=== PATIENT | female | born 1965 | race Caucasian/White ===

== ENCOUNTER → 2017-06-14 | Outpatient (CLI) | payer BC | LOC: BMCIMAGING 12:13 | PROVIDERS: ATTEND Family Medicine | DX: Z12.31 Encounter for screening mammogram for malignant neoplasm of breast (principal); Z80.3 Family history of malignant neoplasm of breast | CPT/HCPCS: G0202 ==

== ENCOUNTER → 2018-09-18 | Outpatient (CLI) | payer BC, OTHER | LOC: BMCIMAGING 08:24 | PROVIDERS: ATTEND Family Medicine | DX: Z12.31 Encounter for screening mammogram for malignant neoplasm of breast (principal); Z80.3 Family history of malignant neoplasm of breast ==

== ENCOUNTER 2018-11-09 14:30 | Inpatient (IN) | payer OTHER ==
--- NOTE | 2018-11-09 14:49 | EDPHY ---
H & P Source: Patient, EMS Exam Limitations: Clinical condition - Medical/Surgical History Hx Asthma: No Hx Chronic Respiratory Disease: No Hx Diabetes: No Hx Cardiac Disease: No Hx Renal Disease: No Hx Cirrhosis: No Hx Alcoholism: No Hx HIV/AIDS: No Other PMH: fibromyalgia, PTSD, depression - Family History Significant Family History: No pertinent family hx - Social History Smoking Status: Never smoked Alcohol Use: Sober Drug Use: None Time Seen by Provider: 11/09/18 14:38 HPI/ROS: CHIEF COMPLAINT: Suicidal ideations HISTORY OF PRESENT ILLNESS: The patient is a 53-year-old female with a history of PTSD and depression and fibromyalgia who comes to the emergency department via EMS for suicidal ideations. EMS reports that she was driving around town but could not find the hospital she then pulled over and called them for help. She tells me that she came here so that we can help kill her. She tells me that this is legal in several states. She does live here in [place] and has a therapist but states she has not seen them for some time. She states she has been compliant with her medications but cannot remember what they are. She denies recent drug or alcohol use. She denies any recent triggers. During a conversation she states she was having a panic attack and set on the floor and began to hyperventilate. Severity: Severe Modifying factors: Able to calm slightly with vocal de-escalation. REVIEW OF SYSTEMS: Constitutional: denies: chills, fever, recent illness, recent injury EENTM: denies: blurred vision, double vision, nose congestion Respiratory: denies: cough, shortness of breath Cardiac: denies: chest pain, irregular heart rate, lightheadedness, palpitations Gastrointestinal/Abdominal: denies: abdominal pain, diarrhea, nausea, vomiting, blood streaked stools Genitourinary: denies: dysuria, frequency, hematuria, pain Musculoskeletal: denies: joint pain, muscle pain Skin: denies: lesions, rash, jaundice, bruising Neurological: denies: headache, numbness, paresthesia, tingling, dizziness, weakness Hematologic/Lymphatic: denies: blood clots, easy bleeding, easy bruising Immunologic/allergic: denies: HIV/AIDS, transplant 10 systems reviewed and negative except as noted EXAM: GENERAL: Asked if we can help to kill her. HEAD: Atraumatic, normocephalic. EYES: Pupils equal round and reactive to light, extraocular movements intact, sclera anicteric, conjunctiva are normal. ENT: TMs normal, nares patent, oropharynx clear without exudates. Moist mucous membranes. NECK: Normal range of motion, supple without lymphadenopathy or JVD. LUNGS: Breath sounds clear to auscultation bilaterally and equal. No wheezes rales or rhonchi. HEART: Regular rate and rhythm without murmurs, rubs or gallops. ABDOMEN: Soft, nontender, normoactive bowel sounds. No guarding, no rebound. No masses appreciated. BACK: No CVA tenderness, no spinal tenderness, step-offs or deformities EXTREMITIES: Normal range of motion, no pitting or edema. No clubbing or cyanosis. NEUROLOGICAL: Cranial nerves II through XII grossly intact. Normal speech, normal gait. 5/5 strength, normal movement in all extremities, normal sensation , normal reflexes PSYCH: Anxious, crying SKIN: Warm, dry, normal turgor, no visible rashes or lesions. (Jorge Eagle) Constitutional: Initial Vital Signs Temperature (C) 37.1 C 11/09/18 15:02 Heart Rate 91 11/09/18 15:02 Respiratory Rate 18 11/09/18 15:02 Blood Pressure 125/78 H 11/09/18 15:02 O2 Sat (%) 98 11/09/18 15:02 O2 Delivery Mode Room Air Allergies/Adverse Reactions: No Known Allergies Allergy (Unverified 11/09/18 15:01) Home Medications: Medication Instructions Recorded DULoxetine [Cymbalta 60 MG (*)] 60 mg PO BID 11/09/18 Losartan Potassium [Cozaar 50 mg 50 mg PO DAILY 11/09/18 (*)] Tizanidine HCl 4 mg PO Q8H PRN 11/09/18 Medical Decision Making ED Course/Re-evaluation: Patient is medically cleared and awaiting psychiatric evaluation. Care transferred to Dr. Curtis Murillo at shift change. (Jorge Eagle) Differential Diagnosis: Partial list of the Differential diagnosis considered include but were not limited to; anxiety, suicidality, schizophrenia, paranoia and although unlikely based on the history and physical exam, I also considered substance abuse, trauma, infection. (Jorge Eagle) - Data Points Laboratory Results: Laboratory Results 11/09/18 14:45 11/09/18 14:45 Medications Given: Duloxetine HCl (Cymbalta) 60 mg PO BID LEÓN Stop: 05/09/19 09:14 Last Admin: 11/10/18 09:13 Dose: 60 mg Losartan Potassium (Cozaar) 50 mg PO DAILY LEÓN Stop: 05/09/19 08:59 Last Admin: 11/10/18 09:13 Dose: 50 mg Discontinued Medications Duloxetine HCl (Cymbalta) 60 mg PO EDNOW ONE Stop: 11/09/18 20:01 Last Admin: 11/09/18 22:14 Dose: 60 mg Olanzapine (Zyprexa Zydis) 10 mg PO EDNOW ONE Stop: 11/09/18 17:02 Last Admin: 11/09/18 17:33 Dose: 10 mg Departure - Departure Disposition: [facility] IP Clinical Impression: Suicidal ideation Condition: Fair
[2018-11-09 14:56] LABS: PLATELET COUNT 245 10^3/uL (150-400)
[2018-11-09] MEDS ORDERED: OLANZapine DISINTEGR 10 MG TAB PO ONE (17:01)
[2018-11-09] MEDS ORDERED: DULoxetine 60 MG CAP PO ONE (20:00)
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
--- NOTE | 2018-11-09 23:45 | ASMTTCLDSP ---
TLC Discharge Disposition Disposition: Answers: Admit Discharge Concerns/Recommendations: Notes: In consultation with [facility] ED physician, Kris Oates MD and [facility] on-call psychiatrist, Vic Rogers MD, both concurred that pt appears to meet 27-65 criteria requiring psychiatric hospitalization as the patient appears to be an imminent risk of harm to self due to a mental illness condition. The patient was given the [facility] prohibited belongings list while in the ED. The patient was read their rights @ 23:30. Was patient given the Answers: Yes Inpatient Behavioral Health Prohibited Belongings List while in the ED? For inpatient Vic Rogers MD admission, the following psychiatrist agreed to accept patient for admission to Behavioral Health ([facility]): Type of Hold: Answers: M1/72-hour Hold Hold initiated by: Answers: Police Date Signed: 11/09/2018 11:13 PM Electronically Signed By:Sarah Sy
[2018-11-10] MEDS ORDERED: OLANZapine DISINTEGR 5 MG TAB PO PRN (00:59)
[2018-11-10] MEDS ORDERED: MAGNESIUM HYDROXIDE 30 ML UDCUP PO PRN (00:59)
[2018-11-10] MEDS ORDERED: NICOTINE POLACRILEX 2 MG GUM B PRN (00:59)
[2018-11-10] MEDS ORDERED: ACETAMINOPHEN 325 MG TAB PO PRN (00:59)
[2018-11-10] MEDS ORDERED: LORazepam 0.5 MG TAB PO PRN (00:59)
[2018-11-10] MEDS ORDERED: MAG HYDROX/AL HYDROX/SIMETH 30 ML UDCUP PO PRN (00:59)
[2018-11-10] MEDS ORDERED: tiZANidine HCL 2 MG TAB PO PRN (09:00)
[2018-11-10] MEDS ORDERED: DULoxetine 60 MG CAP PO SCH (09:00)
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
[2018-11-10] MEDS: DULoxetine 60 MG CAP PO SCH ×2 (09:13→21:06)
[2018-11-10] MEDS: LOSARTAN POTASSIUM 50 MG TAB PO SCH (09:13)
--- NOTE | 2018-11-10 10:49 | ASMTBHMTP ---
Master Treatment Plan Master Treatment Plan Answers: Depressed Mood with for: Suicidal Ideation Date: 11/10/2018 Diagnosis on Admission: Unspecified Depressive Disorder 311 Expected length of stay: 3-5 Days Reason for admission: Notes: The patient is a 53 y/o female, , , and remarried, single, un/employed, with a hx of depression and PTSD. She is living in [place], [place]. The patient arrived via EMS on an M1 hold placed by police after patient called for assistance with suicide. She had planned to overdose on her medications. The patient requested that we help her to . The patient was not oriented; she did not know where she was nor why she was here. The patient presented as paranoid with delusions regarding being watched, followed, and recorded in her home through technology. She reported that she visited the ER at [facility] last week for back pain including that she feared she was being poisoned; she was unable to elaborate.The patient reported that she has chronic suicidal ideation with no hx of completing a plan. She has psychiatric providers, Jose Martinez MD, and Cheryl Dacosta LPC, whom she reported she has not seen in several months. She is medication adherent with no recent changes in medication treatment. The patient expressed ambivalence regarding A/VH; she stated, "I don't think so. People say things that are so strange. I often wonder if I know who it is saying it or if I hear something different." The patient asked again, "Why I am I here?" This data analyst report writer reiterated what the patient had shared previously including her request for support to complete suicide. The patient stated, "That would be good. Can we do that?" The patient lives alone in [place], [place]. She doesn't feel safe returning home. The patient was read their rights @ 23:30. Per M1 hold, "Respondent called the police stating she didn't know where she was and had thoughts of harming herself. Upon contact respondent was paranoid and thought people were following her. Respondent stated she wanted to kill herself. Respondent stated she has attempted suicide via overdose in the past." Per ED physician report, "The patient is a 53-year-old female with a history of PTSD and depression and fibromyalgia who comes to the emergency department via EMS for suicidal ideations. EMS reports that she was driving around town but cannot find the hospital she then pulled over and called them for help. She tells me that she came here so that we can help kill her. She tells me that this is legal in several states. She does live here in [place] and has a therapist but states she has not seen them sometime. She states she has been compliant with her medications but cannot remember what they are. She denies recent drug or alcohol use. She denies any recent triggers. During a conversation she states she was having a panic attack and set on the floor and began to hyperventilate." According to [facility] staff, the patient received Zyprexa, 10mg, @ 17:33. The patient presented as panicking, confused, paranoid, and delusional. She reported that she felt she is being "watched, followed," etc.; including that "social media is recording her information publically." The patient reported that she had planned to OD with the pills she had on her person. She called [facility] ED for help in completing suicide. Patient's stated presenting problems: Notes: Pt. stated "think had a nervous breakdown" adding she was "feeling like I didn't want to live with this pain anymore". Patient's goals for treatment: Notes: Pt. stated "get back into regular therapy and psychiatrist". Patient's strengths: Notes: Pt. stated "being strong" elaborating meaning she has "perservence". Identify supports outside of hospital: Notes: Pt. stated "don't have" then stated one of her sisters and her mother. Discharge criteria: Notes: Suicidal ideation will resolve and patient will have a plan to safely manage recurrent suicidal ideation. Initial disposition plan/considerations: Notes: Pt. stated she plans to stay at her sister's house for a few days after discharge. Master Treatment Plan Required Signatures Psychiatrist signature: Answers: Psychiatrist: RN on-shift signature: Answers: RN: Patient signature: Answers: Patient: Date Signed: 11/10/2018 10:48 AM Electronically Signed By:Madison Basurto
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
[2018-11-10] MEDS ORDERED: OLANZapine 5 MG TAB PO SCH (21:00)
[2018-11-11] MEDS: DULoxetine 60 MG CAP PO SCH ×2 (08:12→19:11)
[2018-11-11] MEDS: LOSARTAN POTASSIUM 50 MG TAB PO SCH (08:12)
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
--- NOTE | 2018-11-11 17:16 | SOAPPROG ---
SOAP Progress Note Assessment/Plan: Assessment: 53 yo woman with h/o depression and alcohol use who was admitted for telling police patrol officer she wanted to . WEEKEND PLAN: 11/11/18 17:11 1. Patient says the Olanzapine last night helped "slow down my thoughts." She reports things are "a lot clearer" to her today. She is less anxious and paranoid, but still believes someone has "hacked my life." But she isn't as distressed by it as she was at admission. 2. Patient slept 12.5 hrs plus took a nap today after receiving 5mg dose of Olanzapine last night. MD recommended reducing dose to 2.5mg tonight, and patient agreed. 3. Patient is eager to discharge tomorrow. She currently has no mental health prescriber, but she does have internet ecommerce specialist and PCP. 4. [facility] expires 11/12/18. Subjective: Patient lying in bed fully dressed in pants, shirt and sweater. She slept 12.5hrs last night. She feels the Olanzapine put her into a "really deep sleep. " She reports thoughts are "calmer" and "slowed down" today. She denies any SI/ HI. Objective: Vital Signs Temp Pulse Resp BP Pulse Ox 36.6 C 89 16 112/74 94 11/11/18 06:00 11/11/18 06:00 11/11/18 06:00 11/11/18 08:12 11/10/18 02:04 MSE: Affect: Euthymic Mood: "OK" TP: Linear TC: Denies SI/HI, still has paranoid delusions about a "stalker" she met online who's been sending her threats; she also believes someone "hacked" her life through computer and phone Insight/Judgment: Poor - Time Spent With Patient Time Spent With Patient: 20" - Pending Discharge Pending Discharge Within 24 Hours: Yes Pending Discharge Date: 11/12/18 (Likely d/c on Monday once f/u appts are complete) Pending Discharge Time: 11:00 ICD10 Worksheet Patient Problems: Problems Problem Status Onset Suicidal ideation Acute
[2018-11-11] MEDS ORDERED: OLANZapine 5 MG TAB PO SCH (17:19)
[2018-11-12 07:11] VITALS: BP 123/82
--- NOTE | 2018-11-12 07:28 | BDS ---
[f rep st] BEHAVIORAL HEALTH DISCHARGE SUMMARY REASON FOR ADMISSION: From the ED note dated 11/09/2018, the patient arrived to the emergency department via EMS for suicidal ideations. The patient was admitted involuntarily and on an M1 hold due to being a danger to herself. The patient was admitted for safety, crisis stabilization, and medication management. ADMITTING DIAGNOSES: 1. Major depressive disorder, severe. 2. Posttraumatic stress disorder. 3. Psychosis disorder, not otherwise specified. Rule out substance induced. 4. Cannabis use disorder, unknown severity. ADMISSION PHYSICAL EXAM: Patient was seen for history and physical consultation on 11/10/2018, for medical clearance for inpatient psychiatric hospitalization and treatment. The patient was medically cleared for inpatient psychiatric hospitalization and treatment. For further details, please refer to consultation document dated 11/10/2018. ADMISSION LABS: 1. CBC within normal limits except white blood cells were elevated at 10.81, basophils were low at 0.2, absolute neutrophils were elevated at 7.912. 2. BMP within normal limits except carbon dioxide was low at 19, glucose was elevated at 133. 3. Beta HCG qualitative test was negative. 4. Toxicology screen was negative for all substances that were screened and negative for ethyl alcohol. 5. Lipid panel within normal limits except LDL cholesterol elevated at 122 and Non-HDL cholesterol elevated at 143. 6. A1c within normal limits at 5.8. MAJOR PROCEDURES OR TESTS: None. HOSPITAL COURSE: The most prominent symptoms and behaviors while the patient was here were reports of moderate anxiety and severe depression. Target symptoms during the course of the hospitalizations were anxiety and depression symptoms. Treatment modalities utilized were milieu and group therapy. Zyprexa 5 mg p.o. at bedtime was started to target mood symptoms. The patient reported feeling overly sedated. Zyprexa was decreased to 2.5 mg p.o. at bedtime to target mood symptoms, was tolerated with no report of side effects and with good response. Cymbalta 60 mg p.o. twice daily was continued to target mood symptoms. Patient also taking Cymbalta for fibromyalgia. Cymbalta was tolerated with no report of side effects and with good response. Patient has improved considerably with no signs of psychiatric symptoms and no psychiatric symptoms expressed. Patient reports she has improved since admission, states to be in stable condition, feels safe to discharge, and she contracts for safety. Patients response to treatment was good. There were no adverse or unexpected results of treatment. The patient was safe throughout stay, active in treatment, engaged in groups, and was appropriate with staff. Patient met with treatment team prior to discharge to assess readiness to discharge and review discharge plan. The treatment team consensus is the patient in stable condition, has a safe discharge plan, and is ready to discharge today. CONDITION AT DISCHARGE: Patient is in stable condition and is no longer a danger to self or others, and is not gravely disabled due to mental illness. Patient is no longer in need of inpatient level of care, and can be safely and effectively treated within the community. The patients level of risk at time of discharge is low. MSE: The patient is casually dressed and with good hygiene , and looks stated age. Patient is sitting, posture is upright, and position is relaxed. Patient appears awake, alert, and responds appropriately and reasonably during interview. Patient is engaged, relates well to interviewer, and emotional facial expression is appropriate to situation and changes appropriately with topic. Patient is cooperative, makes comfortable eye contact , and movements are voluntary, deliberate, coordinated, and smooth and even with no inappropriate movements. Patient makes laryngeal sounds effortlessly and shares conversation appropriately; pace of conversation is appropriate, and stream of talking is fluent; articulation is clear and understandable; word choice is effortless and appropriate for education level; completes sentences, occasionally pausing to think; rate and volume are appropriate for interview and setting. Patient reports mood as euthymic. Patients affect is stable with full variable range, congruent with mood, and appropriate to speech and circumstances. Patient has linear and logical thinking, with no loose associations, tangential thought, thought blocking, concrete thinking, or any other signs of formal thought disorder. Patient denies suicidal and homicidal ideation, and denies hallucinations and delusions. Patient appears to be a reliable historian with sound judgement and good insight into current condition. Patient has no apparent dysfunction in recent or remote memory noted , and no evidence of gross cognitive dysfunction noted at any point during the interview. DISCHARGE DIAGNOSES: 1. Major depressive disorder, severe. 2. Posttraumatic stress disorder. CURRENT MEDICATIONS: After reviewing options, risks and benefits with the patient, patient agrees to continue: 1. Zyprexa 2.5 mg p.o. at bedtime. 2. Tizanidine HCL 4 mg p.o. q.8 hours p.r.n. 3. Losartan potassium 50 mg p.o. daily. 4. Cymbalta 60 mg p.o. twice daily. Patient requests a prescription for Zyprexa at time of discharge. A prescription for 30 days is provided. The prescription and the patient's medications are reviewed with the patient at time of discharge to ensure accuracy and patient understanding. DISPOSITION: Patient left hospital independently and voluntarily and plans to stay with her sister in [place], [place]. This SOFTWARE VALIDATION ENGINEER spoke with sister and patient during family meeting this morning to verify plan, and patient and sister agree with plan and patient's sister reports patient is safe to discharge today. FOLLOWUP: telehealth coordinator reports the appropriate outpatient follow-up services have been established and outpatient appointments have been scheduled. The patient received written instructions with times and dates of outpatient follow-up appointments. The following follow-up recommendations were provided to the patient at discharge: Continue psychotropic medications as prescribed and attend appointments as scheduled. Report any side effects to a psychiatric outpatient provider, a primary care provider, or other health veterinarian laboratory animal care. Address any questions or problems concerning the psychotropic medications with a psychiatric outpatient provider, a primary care provider, or other health veterinarian laboratory animal care. Contact [facility] or [facility], or go to the nearest emergency room, if you are ever a danger to yourself/others, or unable to care for yourself. As soon as possible, establish a routine medication management treatment with a psychiatric provider, establish routine therapy appointments, and follow-up with a primary care provider. LEGAL COURSE: The patient was admitted on an M1 hold for involuntary inpatient psychiatric hospitalization. The patient discharged today independently and voluntarily. ATTITUDE AT TIME OF DISCHARGE: The patients attitude was positive at time of discharge, and patient reports looking forward to discharging today. The patient reports she feels safe to discharge, is no longer a danger to herself or others, is in stable condition, and contracts for safety. Patient states she will continue medications as prescribed, and establish medication management treatment with an outpatient provider after discharge. Patient reports she understands the information that has been provided to her, and she understands, accepts, and agrees to psychotropic medications. Patient describes internal protective factors as the coping skills she has learned while hospitalized here, and she plans to continue to practice these coping skills after discharge. LABS AND RADIOLOGY STUDIES: There were no pending labs or studies at time of discharge. ADVANCED DIRECTIVES: There were no advance directives on file, and patient was full code during this hospitalization. The following psychotropic medication treatment informed consent and recommendations were provided to the patient at time of discharge. Patient reports she understands, accepts, and agrees to the information that has been provided. PSYCHOTROPIC MEDICATION TREATMENT INFORMED CONSENT and RECOMMENDATIONS: Review nature of condition, diagnosis, and prognosis. Review nature and purpose of psychotropic medication treatment. Review type of psychotropic medications being prescribed. Review risk and benefits of psychotropic medication treatment. Review probable length of time will need to take medications. Review risk and benefits of not undergoing psychotropic medication treatment. Review alternative treatments to psychotropic medications. Review psychotropic medications contraindications, side effects, and importance of reporting any side effects to a psychiatric provider, primary care provider, or other health veterinarian laboratory animal care. Review importance of her asking a psychiatric provider or primary care provider any questions or problems concerning the psychotropic medications. Review importance of reporting to a psychiatric provider, primary care provider, or other health veterinarian laboratory animal care if she plans to or becomes . Review safety plan and the importance to contact [facility] or [facility] , or go to the nearest emergency room, if ever a danger to yourself/others, or unable to care for yourself. Recommend upon discharge to establish routine medication management treatment with a psychiatric provider, establish routine therapy appointments, and follow-up with a primary care provider. Verify patient understands, accepts, and agrees to the information that has been provided. /[id number]/[id number] MTDD
[2018-11-12] MEDS: LOSARTAN POTASSIUM 50 MG TAB PO SCH (08:15)
[2018-11-12] MEDS: DULoxetine 60 MG CAP PO SCH (08:15)
== END 2018-11-12 11:15 | disposition home or self-care (01) | DRG 885 ==
LOC: EDUNIT# → BBEH 11-10 00:49
PROVIDERS: ADMIT Psychiatry & Neurology Psychiatry; ATTEND Psychiatry & Neurology Psychiatry
DX: F33.2 Major depressive disorder, recurrent severe without psychotic features (principal); F43.12 Post-traumatic stress disorder, chronic; F29 Unspecified psychosis not due to a substance or known physiological condition; F12.90 Cannabis use, unspecified, uncomplicated; M79.7 Fibromyalgia; M54.9 Dorsalgia, unspecified; I10 Essential (primary) hypertension; Z81.8 Family history of other mental and behavioral disorders
CPT/HCPCS: 80305; G0480